=== PATIENT | male | born 2000 | race Caucasian/White ===

== ENCOUNTER 2020-02-10 16:26 | Emergency (ER) | payer OTHER, SELFPAY ==
[2020-02-10 17:26] VITALS: BP 128/90; PULSE 91; RESP 16; TEMP 36.6; O2SAT 98; BMI 22.4
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
== END 2020-02-10 20:40 | disposition home or self-care (01) ==
PROVIDERS: Emergency Provider Internal Medicine
DX: S49.92XA Unspecified injury of left shoulder and upper arm, initial encounter (principal); M25.512 Pain in left shoulder; R07.81 Pleurodynia; M54.2 Cervicalgia; V43.52XA Car driver injured in collision with other type car in traffic accident, initial encounter; Y93.9 Activity, unspecified; Y92.410 Unspecified street and highway as the place of occurrence of the external cause; Y99.9 Unspecified external cause status
CPT/HCPCS: 71101; 73030; 99283

== ENCOUNTER 2020-08-12 03:25 | Emergency (ER) | payer MEDICAID, SELFPAY ==
--- NOTE | ~2020-08-12 | XR_ITS ---
EXAMINATION: XR CHEST CLINICAL INFORMATION: Pain COMPARISON: 02/10/2020 TECHNIQUE: Frontal view of the chest was obtained. FINDINGS: The lungs are clear with no focal consolidation. No evidence of pneumothorax, pulmonary edema, or pleural effusions. The cardiomediastinal silhouette is unremarkable. No acute osseous findings. XR/XR chest 1V IMPRESSION: No acute cardiopulmonary findings.
--- NOTE | 2020-08-12 03:58 | ED.ABDPAIN ---
HPI - Abdominal Pain General Chief Complaint: Abdominal Pain Stated Complaint: chest and abdominal pain Time Seen by Provider: 08/12/20 03:58 Source: patient Mode of arrival: ambulatory Limitations: no limitations History of Present Illness HPI narrative: 20 yo male L sided chest wall pain with some radiation down to LUQ - no other associated symptoms started 5 days ago MD elicited complaint: other (L chest wall pain) Pertinent past history: none Onset (ago): day(s) (5) Pain Consistency: constant Location: chest and LUQ Severity: mild Quality: aching and dull Radiation: LUQ Exacerbating factors: movement Relieving factors: nothing Associated symptoms: denies other symptoms Related Data Previous Rx's Medication Instructions Recorded cyclobenzaprine 10 mg PO TID PRN #14 tab 08/12/20 ibuprofen 600 mg PO Q6H PRN #30 tab 08/12/20 Allergies Allergy/AdvReac Type Severity Reaction Status Date / Time No Known Allergies Allergy Verified 02/10/20 18:46 [No Known Allergies*] Review of Systems Review of Systems Constitutional : No Weight loss, No Fever, No Chills ENT/Mouth : No sore throat, No Rhinorrhea Eyes: No Eye Pain, No Swelling Cardiovascular : pos Chest Pain, no SOB, no Dyspnea on Exertion, No Orthopnea, No Edema, No Palpitations Respiratory : No Cough, No Sputum Gastrointestinal : no Nausea, No Vomiting, No Diarrhea, No abdominal Pain, No Hematochezia, No Melena Genitourinary : No Dysuria, No Urinary Frequency Musculoskeletal : No joint pain, No Myalgias, No Joint Swelling Skin : No Skin Lesions, No rash Neuro : No Weakness, No Numbness, No Dizziness, No Headache Psych : No Anxiety/Panic, No Depression Heme/Lymph: No Bruising, No Lymphadenopathy Endocrine : No Polyuria, No Polydipsia All other systems reviewed and are negative Physical Exam Vital Signs: Vital Signs: Last Vital Signs Temp 97.8 F 08/12/20 04:00 Pulse 90 08/12/20 04:00 Resp 16 08/12/20 04:00 BP 113/65 08/12/20 04:00 Pulse Ox 98 08/12/20 04:00 Body Mass Index 19.8 Appearance: Alert. Oriented X3. No acute distress. Eyes: Pupils equal, round and reactive to light. ENT: Pharynx normal. Neck: Normal inspection. Neck supple. CVS: Normal heart rate and rhythm. Pulses normal. Chest: ttp along L anterior chest wall Respiratory: No respiratory distress. Breath sounds normal. Abdomen: Soft and nontender. Skin: Skin warm and dry. Normal skin color. Normal skin turgor. Extremities: No lower extremity edema. No calf ttp Neuro: Oriented X 3. No motor deficit. No sensory deficit. Course Course Course Narrative: negative workup stable for DC MDM - Abdominal Pain MDM Narrative Medical decision making narrative: 20 yo male with no PMH here with L chest wall pain - started 5 days ago no trauma c/o pain traveling to [facility] doubt ACS/dissection/ PERC negative, will obtain CXR, EKG basic labs, treat with NSAIDs - anticipate DC home if all normal Differential Diagnosis Differential diagnosis: Likely abdominal pain; Unlikely aortic dissection, acute appendicitis, bowel perforation, calculus of kidney, endometriosis and mesenteric ischemia Lab Data Result diagrams: 08/12/20 04:30 08/12/20 04:30 Labs: Lab Results 08/12/20 08/12/20 08/12/20 Range/Units 04:30 04:30 04:30 WBC 5.6 (4.8-10.8) X10*3/uL RBC 4.99 (4.60-5.80) X10*6/uL Hgb 15.7 (14.0-18.0) g/dl Hct 45.6 (42-52) % MCV 91.4 (80-98) fL MCH 31.5 (27.0-33.0) pg MCHC 34.4 (31.0-36.0) g/dl RDW 11.9 (11.0-16.0) % Plt Count 230 (160-400) X10*3/uL MPV 10.0 (9.4-12.4) fL Immature Gran % (Auto) 0.4 (0.0-0.4) % Neut % (Auto) 45.6 (45-73) % Lymph % (Auto) 41.5 H (20-40) % [place] % (Auto) 10.0 (2-11) % Eos % (Auto) 1.8 (0-4) % Baso % (Auto) 0.7 (0-2) % Lymph # (Auto) 2.3 (1.2-4.9) X10*3/uL [place] # (Auto) 0.6 (0.1-1.2) X10*3/uL Eos # (Auto) 0.1 (0.0-0.4) X10*3/uL Baso # (Auto) 0.0 (0.0-0.2) X10*3/uL Abs Immat Gran (auto) 0.02 (0.00-0.03) X10*3/uL Absolute Neuts (auto) 2.6 (2.0-8.3) X10*3/uL Absolute Nucleated RBC 0.000 (0.0-0.012) X10*3/uL Nucleated RBC % (auto) 0.0 (0.0-0.2) /100WBC Hold Blue Top SEE NOTE Sodium 138 (135-145) mmol/L Potassium 3.6 (3.3-5.1) mmol/L Chloride 103 (96-108) mmol/L Carbon Dioxide 24 (22-29) mmol/L Anion Gap 15 (12-20) BUN 8 L (9-16) mg/dL Creatinine 0.84 (0.5-1.4) mg/dL Estim Creat Clear Calc 110.6 Estimated GFR > 60 Random Glucose 75 (60-115) mg/dL Calcium 9.1 (8.4-10.2) mg/dL Magnesium 1.8 (1.6-2.6) mg/dL Total Bilirubin 1.9 H (0.0-1.0) mg/dL Direct Bilirubin 0.7 H (0.0-0.5) mg/dL AST 16 (5-37) U/L ALT 20 (0-40) U/L Alkaline Phosphatase 75 (39-117) U/L Troponin I High Sens (<3.5-35.0) ng/L Total Protein 7.6 (6.5-8.0) g/dL Albumin 4.4 (3.5-5.0) g/dL Lipase 52 (8-78) U/L 08/12/20 Range/Units 04:30 WBC (4.8-10.8) X10*3/uL RBC (4.60-5.80) X10*6/uL Hgb (14.0-18.0) g/dl Hct (42-52) % MCV (80-98) fL MCH (27.0-33.0) pg MCHC (31.0-36.0) g/dl RDW (11.0-16.0) % Plt Count (160-400) X10*3/uL MPV (9.4-12.4) fL Immature Gran % (Auto) (0.0-0.4) % Neut % (Auto) (45-73) % Lymph % (Auto) (20-40) % [place] % (Auto) (2-11) % Eos % (Auto) (0-4) % Baso % (Auto) (0-2) % Lymph # (Auto) (1.2-4.9) X10*3/uL [place] # (Auto) (0.1-1.2) X10*3/uL Eos # (Auto) (0.0-0.4) X10*3/uL Baso # (Auto) (0.0-0.2) X10*3/uL Abs Immat Gran (auto) (0.00-0.03) X10*3/uL Absolute Neuts (auto) (2.0-8.3) X10*3/uL Absolute Nucleated RBC (0.0-0.012) X10*3/uL Nucleated RBC % (auto) (0.0-0.2) /100WBC Hold Blue Top Sodium (135-145) mmol/L Potassium (3.3-5.1) mmol/L Chloride (96-108) mmol/L Carbon Dioxide (22-29) mmol/L Anion Gap (12-20) BUN (9-16) mg/dL Creatinine (0.5-1.4) mg/dL Estim Creat Clear Calc Estimated GFR Random Glucose (60-115) mg/dL Calcium (8.4-10.2) mg/dL Magnesium (1.6-2.6) mg/dL Total Bilirubin (0.0-1.0) mg/dL Direct Bilirubin (0.0-0.5) mg/dL AST (5-37) U/L ALT (0-40) U/L Alkaline Phosphatase (39-117) U/L Troponin I High Sens < 3.5 (<3.5-35.0) ng/L Total Protein (6.5-8.0) g/dL Albumin (3.5-5.0) g/dL Lipase (8-78) U/L ECG Data Attestation: I personally reviewed and interpreted this ECG as follows: ECG interpretation date: 08/12/20 ECG interpretation time: 04:37 Interpretation: Rate: 101 Rhythm: sinus tachycardia [place]: normal Normal P waves. Normal NITHYA. Normal QRS complex. ST T wave : normal no DENNIS qTC: normal prior studies: no acute ischemia The study has been interpreted contemporaneously by me. . Discharge Plan Discharge Clinical Impression: Acute chest wall pain Patient Disposition: Home, Self-Care Instructions: Chest Wall Pain (ED) Additional Instructions: return to ED for any worsening symptoms or concerns Prescriptions: New cyclobenzaprine 10 mg tablet 10 mg PO TID PRN (Reason: muscle spasm) Qty: 14 RF: 0 ibuprofen 600 mg tablet 600 mg PO Q6H PRN (Reason: pain) Qty: 30 RF: 0 Referrals: Physician,Unknown [Primary Care Provider] - 2 days (if not better) Stand Alone Forms: Work/School Release [facility] Past Medical History Attestation statement: The following information was validated with the patient. Medical History No known health problems Social History Social History (Updated 08/12/20 @ 04:21 by Ashley Hoffman DO) Smoking Status: Never smoker Use of substances other than those prescribed or required for medical reasons: No Advance Directives: No Advance Directives Information Provided: No
[2020-08-12 04:00] VITALS: BP 113/65; PULSE 90; RESP 16; TEMP 36.6; O2SAT 98; BMI 19.8
--- NOTE | 2020-08-12 04:11 | ECG_ITS ---
Test Reason : ABD PAIN Blood Pressure : / mmHG Vent. Rate : 101 BPM Atrial Rate : 101 BPM P-R Int : 136 ms QRS Dur : 096 ms QT Int : 350 ms P-R-T Axes : 075 056 057 degrees QTc Int : 453 ms Sinus tachycardia Otherwise normal ECG When compared to the previous EKG of No significant changes seen Referred By: Ashley Hoffman Electronically Signed By:BURAK MENDENHALL MD
[2020-08-12] MEDS: Cyclobenzaprine HCl 10 MG TABLET PO (04:19)
[2020-08-12] MEDS: Ibuprofen 600 MG TABLET PO (04:19)
[2020-08-12 04:40] LABS: MANUAL DIFF FLAG NO
[2020-08-12 04:41] LABS: Basophils Percent Auto 0.7 % (0-2); Eosinophils Absolute Auto 0.1 X10*3/uL (0.0-0.4); Eosinophils Percent Auto 1.8 % (0-4); Hematocrit 45.6 % (42-52); Hemoglobin 15.7 g/dl (14.0-18.0); Imm Gran Abs Auto 0.02 X10*3/uL (0.00-0.03); Imm Gran Pct Auto 0.4 % (0.0-0.4); Lymphocytes Absolute Auto 2.3 X10*3/uL (1.2-4.9); Lymphocytes Percent Auto 41.5 % (20-40); Mean Corpuscular HGB Conc 34.4 g/dl (31.0-36.0); Mean Corpuscular Hemoglobin 31.5 pg (27.0-33.0); Mean Corpuscular Volume 91.4 fL (80-98); Monocytes Absolute Auto 0.6 X10*3/uL (0.1-1.2); Neutrophils Absolute Auto 2.6 X10*3/uL (2.0-8.3); Neutrophils Percent Auto 45.6 % (45-73); Platelet Count 230 X10*3/uL (160-400); Red Blood Count 4.99 X10*6/uL (4.60-5.80); Red Cell Distribution Width 11.9 % (11.0-16.0); White Blood Count 5.6 X10*3/uL (4.8-10.8)
[2020-08-12 05:04] LABS: Alanine Aminotransferase 20 U/L (0-40); Albumin Level 4.4 g/dL (3.5-5.0); Alkaline Phosphatase 75 U/L (39-117); Anion Gap 15 (12-20); Aspartate Amino Transferase 16 U/L (5-37); Bilirubin Direct 0.7 mg/dL (0.0-0.5); Bilirubin Total 1.9 mg/dL (0.0-1.0); Blood Urea Nitrogen 8 mg/dL (9-16); Calcium 9.1 mg/dL (8.4-10.2); Carbon Dioxide 24 mmol/L (22-29); Chloride 103 mmol/L (96-108); Creatinine Clr Calc Pharmacy 110.6; Estimated Glomerular Filt Rate > 60; Glucose Random 75 mg/dL (60-115); Lipase 52 U/L (8-78); Magnesium 1.8 mg/dL (1.6-2.6); Potassium 3.6 mmol/L (3.3-5.1); Sodium 138 mmol/L (135-145); Total Protein 7.6 g/dL (6.5-8.0)
[2020-08-12 05:10] LABS: Troponin-I High Sensitivity < 3.5 ng/L (<3.5-35.0)
== END 2020-08-12 05:23 | disposition home or self-care (01) ==
PROVIDERS: Emergency Provider Emergency Medicine
DX: R10.12 Left upper quadrant pain (principal); R07.89 Other chest pain; Z79.899 Other long term (current) drug therapy
CPT/HCPCS: 36415; 71045; 80048; 80076; 83690; 83735; 84484; 85025; 93005; 99283

== ENCOUNTER 2020-12-09 04:42 | Emergency (ER) | payer OTHER, SELFPAY ==
--- NOTE | 2020-12-09 | ECG_ITS ---
Test Reason : CHEST PAIN Blood Pressure : / mmHG Vent. Rate : 088 BPM Atrial Rate : 088 BPM P-R Int : 138 ms QRS Dur : 094 ms QT Int : 354 ms P-R-T Axes : 079 073 072 degrees QTc Int : 428 ms Normal sinus rhythm Early repolarization Normal ECG When compared with ECG of 12-AUG-2020 04:23, Heart rate has decreased Referred By: Generic ED Physician Electronically Signed By:ELLEN HOWELL
--- NOTE | ~2020-12-09 | XR_ITS ---
EXAMINATION: XR CHEST CLINICAL INFORMATION: Chest pain COMPARISON: 08/12/2020 TECHNIQUE: Frontal view of the chest was obtained. FINDINGS: The lungs are clear with no focal consolidation. No evidence of pneumothorax, pulmonary edema, or pleural effusions. The cardiomediastinal silhouette is unremarkable. No acute osseous findings. XR/XR chest 1V IMPRESSION: No acute cardiopulmonary findings.
[2020-12-09 04:59] VITALS: BP 127/78; PULSE 94; RESP 16; TEMP 36.4; O2SAT 98; BMI 19.7
[2020-12-09 05:48] VITALS: BP 120/78; PULSE 67; RESP 14; O2SAT 100
[2020-12-09 05:59] LABS: MANUAL DIFF FLAG NO
[2020-12-09 06:00] LABS: Basophils Percent Auto 0.6 % (0-2); Eosinophils Absolute Auto 0.1 X10*3/uL (0.0-0.4); Eosinophils Percent Auto 1.1 % (0-4); Hematocrit 41.5 % (42-52); Hemoglobin 14.4 g/dl (14.0-18.0); Imm Gran Abs Auto 0.02 X10*3/uL (0.00-0.03); Imm Gran Pct Auto 0.4 % (0.0-0.4); Lymphocytes Absolute Auto 1.9 X10*3/uL (1.2-4.9); Lymphocytes Percent Auto 34.6 % (20-40); Mean Corpuscular HGB Conc 34.7 g/dl (31.0-36.0); Mean Corpuscular Hemoglobin 31.9 pg (27.0-33.0); Mean Platelet Volume 10.1 fL (9.4-12.4); Monocytes Absolute Auto 0.5 X10*3/uL (0.1-1.2); Monocytes Percent Auto 9.9 % (2-11); Neutrophils Absolute Auto 2.9 X10*3/uL (2.0-8.3); Neutrophils Percent Auto 53.4 % (45-73); Platelet Count 207 X10*3/uL (160-400); Red Blood Count 4.51 X10*6/uL (4.60-5.80); Red Cell Distribution Width 11.3 % (11.0-16.0); White Blood Count 5.4 X10*3/uL (4.8-10.8)
[2020-12-09 06:15] LABS: Alanine Aminotransferase 33 U/L (0-40); Albumin Level 4.4 g/dL (3.5-5.0); Alkaline Phosphatase 62 U/L (39-117); Anion Gap 11 (12-20); Aspartate Amino Transferase 19 U/L (5-37); Bilirubin Total 2.3 mg/dL (0.0-1.0); Blood Urea Nitrogen 12 mg/dL (9-16); Calcium 9.5 mg/dL (8.4-10.2); Carbon Dioxide 26 mmol/L (22-29); Chloride 105 mmol/L (96-108); Creatinine Clr Calc Pharmacy 111.3; Estimated Glomerular Filt Rate > 60; Glucose Random 94 mg/dL (60-115); Potassium 3.3 mmol/L (3.3-5.1); Sodium 139 mmol/L (135-145); Total Protein 7.4 g/dL (6.5-8.0)
[2020-12-09 06:21] LABS: Troponin-I High Sensitivity < 3.5 ng/L (<3.5-35.0)
--- NOTE | 2020-12-09 06:35 | ED.CHESTPAIN ---
HPI - Chest Pain General Chief Complaint: Chest Pain Stated Complaint: multiple complaints Time Seen by Provider: 12/09/20 06:35 Source: patient Mode of arrival: ambulatory Limitations: no limitations History of Present Illness MD complaint: chest pain and other (neck arm pain) Onset (ago): day(s) (2) Timing of current episode: constant Prior episodes: Yes Onset: during rest Pain location: left chest Pain radiation: none Severity: moderate Quality: aching Relieving factors: movement Exacerbating factors: nothing Context: other (started after doing push ups) Treatment prior to arrival: none Related Data Previous Rx's Medication Instructions Recorded cyclobenzaprine 10 mg tablet 10 mg PO TID PRN #14 tab 08/12/20 ibuprofen 600 mg tablet 600 mg PO Q6H PRN #30 tab 08/12/20 Allergies Allergy/AdvReac Type Severity Reaction Status Date / Time No Known Allergies Allergy Verified 02/10/20 18:46 [No Known Allergies*] Review of Systems Review of Systems: Constitutional : No Weight loss, No Fever, No Chills ENT/Mouth : No sore throat, No Rhinorrhea Eyes: No Eye Pain, No Swelling Cardiovascular : pos Chest Pain, no sOB, no Dyspnea on Exertion, No Orthopnea, No Edema, No Palpitations Respiratory : No Cough, No Sputum Gastrointestinal : no Nausea, No Vomiting, No Diarrhea, No abdominal Pain, No Hematochezia, No Melena Genitourinary : No Dysuria, No Urinary Frequency Musculoskeletal : No joint pain, No Myalgias, No Joint Swelling Skin : No Skin Lesions, No rash Neuro : No Weakness, No Numbness, No Dizziness, No Headache Psych : No Anxiety/Panic, No Depression Heme/Lymph: No Bruising, No Lymphadenopathy Endocrine : No Polyuria, No Polydipsia All other systems reviewed and are negative [facility] Past Medical History Attestation statement: The following information was validated with the patient. Medical History No known health problems Social History Social History (Updated 12/09/20 @ 07:02 by Ashley Hoffman DO) Patient Tobacco Use Status: Never used Tobacco Use of substances other than those prescribed or required for medical reasons: No Advance Directives: No Physical Exam Vital Signs: Vital Signs: Last Vital Signs Temp 97.6 F 12/09/20 04:59 Pulse 52 12/09/20 06:38 Resp 15 12/09/20 06:38 BP 114/78 12/09/20 06:38 Pulse Ox 100 12/09/20 05:48 Body Mass Index 19.7 Appearance: Alert. Oriented X3. No acute distress. Eyes: Pupils equal, round and reactive to light. ENT: Pharynx normal. Neck: Normal inspection. Neck supple. spasm R trapezius CVS: Normal heart rate and rhythm. Pulses normal. Chest: ttp L chest wall reproduces pain Respiratory: No respiratory distress. Breath sounds normal. Abdomen: Soft and nontender. Skin: Skin warm and dry. Normal skin color. Normal skin turgor. Extremities: No lower extremity edema. No calf ttp Neuro: Oriented X 3. No motor deficit. No sensory deficit. MDM - Chest Pain MDM Narrative Medical decision making narrative: 20 yo male otherwise healthy here with 2 days of reproduceable chest and L arm pain as well as pain in R neck at trapezius after doing push ups - he is NV intact, negative EKG, CXR and trop - no distress, distal pulses intact doubt dissection, PERC negative Lab Data Result diagrams: 12/09/20 05:55 12/09/20 05:55 Labs: Lab Results 12/09/20 12/09/20 12/09/20 Range/Units 05:55 05:55 05:55 WBC 5.4 (4.8-10.8) X10*3/uL RBC 4.51 L (4.60-5.80) X10*6/uL Hgb 14.4 (14.0-18.0) g/dl Hct 41.5 L (42-52) % MCV 92.0 (80-98) fL MCH 31.9 (27.0-33.0) pg MCHC 34.7 (31.0-36.0) g/dl RDW 11.3 (11.0-16.0) % Plt Count 207 (160-400) X10*3/uL MPV 10.1 (9.4-12.4) fL Immature Gran % (Auto) 0.4 (0.0-0.4) % Neut % (Auto) 53.4 (45-73) % Lymph % (Auto) 34.6 (20-40) % [place] % (Auto) 9.9 (2-11) % Eos % (Auto) 1.1 (0-4) % Baso % (Auto) 0.6 (0-2) % Lymph # (Auto) 1.9 (1.2-4.9) X10*3/uL [place] # (Auto) 0.5 (0.1-1.2) X10*3/uL Eos # (Auto) 0.1 (0.0-0.4) X10*3/uL Baso # (Auto) 0.0 (0.0-0.2) X10*3/uL Abs Immat Gran (auto) 0.02 (0.00-0.03) X10*3/uL Absolute Neuts (auto) 2.9 (2.0-8.3) X10*3/uL Absolute Nucleated RBC 0.000 (0.0-0.012) X10*3/uL Nucleated RBC % (auto) 0.0 (0.0-0.2) /100WBC Sodium 139 (135-145) mmol/L Potassium 3.3 (3.3-5.1) mmol/L Chloride 105 (96-108) mmol/L Carbon Dioxide 26 (22-29) mmol/L Anion Gap 11 L (12-20) BUN 12 (9-16) mg/dL Creatinine 0.83 (0.5-1.4) mg/dL Estim Creat Clear Calc 111.3 Estimated GFR > 60 Random Glucose 94 (60-115) mg/dL Calcium 9.5 (8.4-10.2) mg/dL Total Bilirubin 2.3 H (0.0-1.0) mg/dL AST 19 (5-37) U/L ALT 33 (0-40) U/L Alkaline Phosphatase 62 (39-117) U/L Troponin I High Sens < 3.5 (<3.5-35.0) ng/L Total Protein 7.4 (6.5-8.0) g/dL Albumin 4.4 (3.5-5.0) g/dL ECG Data ECG #1: Attestation: I personally reviewed and interpreted this ECG as follows: ECG interpretation date: 12/09/20 ECG interpretation time: 06:58 Interpretation: Rate: 88 Rhythm: NSR [place]: normal Normal P waves. Normal NITHYA. Normal QRS complex. ST T wave : early repolarization qTC: normal prior studies: no acute ischemia The study has been interpreted contemporaneously by me. . Discharge Plan Discharge Clinical Impression: Atypical chest pain, Acute strain of neck muscle Instructions: Chest Wall Pain (ED), Muscle Strain (ED) Additional Instructions: return to ED for any worsening symptoms or concerns Prescriptions: No Action cyclobenzaprine 10 mg tablet 10 mg PO TID PRN (Reason: muscle spasm) Qty: 14 RF: 0 ibuprofen 600 mg tablet 600 mg PO Q6H PRN (Reason: pain) Qty: 30 RF: 0 Referrals: Physician,Unknown [Primary Care Provider] - 2 days (if not better)
[2020-12-09 06:38] VITALS: BP 114/78; PULSE 52; RESP 15
--- NOTE | 2020-12-09 07:35 | PC.NURSE ---
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
== END 2020-12-09 08:28 | disposition home or self-care (01) ==
PROVIDERS: Emergency Provider Emergency Medicine
DX: R07.89 Other chest pain (principal); M54.2 Cervicalgia; Z79.899 Other long term (current) drug therapy
CPT/HCPCS: 36415; 71045; 80053; 84484; 85025; 93005; 99283; 99284

== ENCOUNTER 2021-01-17 19:03 | Emergency (ER) | payer OTHER, SELFPAY ==
[2021-01-17 19:22] VITALS: BP 118/82; PULSE 110; RESP 16; TEMP 36.7; O2SAT 100; BMI 19.8
--- NOTE | 2021-01-17 19:44 | ED.FALL ---
HPI - Fall General Chief Complaint: Neck Pain/Injury Stated Complaint: Fall Time Seen by Provider: 01/17/21 19:37 Source: patient Mode of arrival: ambulatory Limitations: no limitations History of Present Illness HPI Narrative: 20-year-old male presenting with multiple complaints after a mechanical fall. Patient reports acute on chronic right-sided neck pain after the fall as well as a small abrasion on his forehead and some right-sided jaw pain. He reports tripping and falling onto the carpet at 16:00 today. He did not his head or lose consciousness. He is able to talk, eat, fully open and close his jaw. The pain is worse when he touches it and he feels like there is a small area of swelling. He has no sore throat, runny nose, fever, chills. His neck pain is on the right side which is chronic in nature but worse after the fall. He has no cervical spinal pain and he has normal range of motion of the neck. MD complaint: fall Onset (ago): hour(s) (4) Fall from: standing Fall witnessed: yes, by family Place fall occurred: home Loss of consciousness: none Prolonged down time: no Symptoms prior to fall: none Context: tripped/slipped Location of injury: face Severity: mild Quality: aching Associated symptoms (after fall): neck pain Related Data Previous Rx's Medication Instructions Recorded cyclobenzaprine 10 mg tablet 10 mg PO TID PRN #14 tab 08/12/20 ibuprofen 600 mg tablet 600 mg PO Q6H PRN #30 tab 08/12/20 cyclobenzaprine 10 mg tablet 10 mg PO TID PRN #10 tab 01/17/21 ibuprofen 600 mg tablet 600 mg PO Q8H PRN #10 tab 01/17/21 lidocaine 5 % topical patch 1 patch TOPICAL DAILY #15 ea 01/17/21 Allergies Allergy/AdvReac Type Severity Reaction Status Date / Time No Known Allergies Allergy Verified 01/17/21 19:22 [No Known Allergies*] Review of Systems Review of Systems: Constitutional: No Fever, No Chills ENT/Mouth: No sore throat, No Rhinorrhea, No Swallowing Difficulty Eyes: No Eye Pain, No Swelling, No Redness Cardiovascular: No Chest Pain, No SOB Respiratory: No Cough, No Sputum, No Wheezing, No dyspnea Gastrointestinal: No Nausea, No Vomiting, No Diarrhea, No abdominal Pain Musculoskeletal: +joint pain, + Myalgias Skin: + Skin Lesions, No rash Neuro: No Weakness, No Numbness, No Dizziness, No Headache Psych: + Anxiety/Panic, No Depression Heme/Lymph: No Bruising, + Lymphadenopathy PMFSH Past Medical History Medical History No known health problems Social History Social History (Updated 12/09/20 @ 07:02 by Ashley Hoffman DO) Patient Tobacco Use Status: Never used Tobacco Advance Directives: No Advance Directives Information Provided: No Physical Exam Vital Signs: Vital Signs: Last Vital Signs Temp 98.1 F 01/17/21 19: Pulse 110 H 01/17/21 19:22 Resp 16 01/17/21 19:22 BP 118/82 01/17/21 19:22 Pulse Ox 100 01/17/21 19:22 Body Mass Index 19.8 Appearance: Alert. Oriented X3. No acute distress. Head/face: superficial very small abrasion to right upper forehead. normocephalic Eyes: Pupils equal, round and reactive to light. ENT: Pharynx normal. Normal appearance and ROM of mandible. Neck: Normal inspection. Neck supple. No cervical spinal tenderness. right sided cervical muscle tenderness and spasm CVS: Normal heart rate and rhythm. Pulses normal. Respiratory: No respiratory distress. Breath sounds normal. Skin: Skin warm and dry. Normal skin color. Normal skin turgor. No rashes. Extremities: Atraumatic x4 Neuro: Oriented X 3. No motor deficit. No sensory deficit. Course Course Course Narrative: 20-year-old male presenting with multiple complaints after a minor mechanical fall earlier today. He has a small superficial abrasion on his forehead and wants to know how long is going to be before goes away. He has acute on chronic neck pain with no evidence of bony injury, he has some mild palpable muscle spasm on the right side of his neck. He also has a small mobile lymph node at the angle of the right mandible. No signs of an infection. He was instructed to follow up with his primary care doctor for further evaluation and management if this does not resolve on its own. Will plan to treat for cervical strain and spasm with a short course of Flexeril and ibuprofen and Lidoderm patches. Patient agreeable with plan. Stable for discharge home. Discharge Plan Discharge Clinical Impression: Strain of neck muscle Qualifiers: Encounter type: initial encounter Qualified Code(s): S16.1XXA - Strain of muscle, fascia and tendon at neck level, initial encounter Patient Disposition: Home, Self-Care Instructions: Cervical Strain (ED), Lymphadenopathy (ED) Additional Instructions: Your neck pains are most likely due to strain and spasm. Recommend rest, use ice and or heat several times a day which ever feels better. Take prescribed medications as needed for pain There is a small enlarged lymph node on the right jaw that is causing some discomfort. There is no evidence of fracture or bony abnormality of the jaw Recommend following up with your doctor for further evaluation if the swelling persists Prescriptions: New cyclobenzaprine 10 mg tablet 10 mg PO TID PRN (Reason: muscle spasm) Qty: 10 RF: 0 ibuprofen 600 mg tablet 600 mg PO Q8H PRN (Reason: pain) Qty: 10 RF: 0 lidocaine 5 % adhesive patch,medicated 1 patch topical DAILY Qty: 15 RF: 0 No Action cyclobenzaprine 10 mg tablet 10 mg PO TID PRN (Reason: muscle spasm) Qty: 14 RF: 0 ibuprofen 600 mg tablet 600 mg PO Q6H PRN (Reason: pain) Qty: 30 RF: 0
== END 2021-01-17 20:33 | disposition home or self-care (01) ==
PROVIDERS: Emergency Provider Internal Medicine
DX: S00.81XA Abrasion of other part of head, initial encounter (principal); S16.1XXA Strain of muscle, fascia and tendon at neck level, initial encounter; G44.309 Post-traumatic headache, unspecified, not intractable; M54.2 Cervicalgia; W01.0XXA Fall on same level from slipping, tripping and stumbling without subsequent striking against object, initial encounter; Y93.9 Activity, unspecified; Y92.9 Unspecified place or not applicable; Y99.9 Unspecified external cause status; Z79.899 Other long term (current) drug therapy
CPT/HCPCS: 99283

== ENCOUNTER 2021-03-02 04:58 | Emergency (ER) | payer OTHER, SELFPAY ==
[2021-03-02 05:09] VITALS: BP 124/87; PULSE 80; RESP 18; TEMP 36.8; O2SAT 100; BMI 19.8
--- NOTE | 2021-03-02 05:11 | ED_ITS ---
HPI - General Adult General Chief complaint: Abdominal Pain Stated complaint: abdominal pain, swollen fingers ? Time Seen by Provider: 03/02/21 05:06 Source: patient Mode of arrival: ambulatory Limitations: no limitations History of Present Illness HPI narrative: Patient comes to emergency room complaining of bilateral upper quadrant pain. Patient states he felt a sharp pain that woke him up from sleep, no resolve. Denies vomiting, no diarrhea, no nausea, no fever or chills, no flank pain, no dysuria, no urinary symptoms Related Data Previous Rx's Medication Instructions Recorded cyclobenzaprine 10 mg tablet 10 mg PO TID PRN #14 tab 08/12/20 ibuprofen 600 mg tablet 600 mg PO Q6H PRN #30 tab 08/12/20 cyclobenzaprine 10 mg tablet 10 mg PO TID PRN #10 tab 01/17/21 ibuprofen 600 mg tablet 600 mg PO Q8H PRN #10 tab 01/17/21 lidocaine 5 % topical patch 1 patch TOPICAL DAILY #15 ea 01/17/21 cyclobenzaprine 10 mg tablet 10 mg PO TID PRN #10 tab 03/02/21 Allergies Allergy/AdvReac Type Severity Reaction Status Date / Time No Known Allergies Allergy Verified 01/17/21 19:22 [No Known Allergies*] Review of Systems Review of Systems: Constitutional : No Weight loss, No Fever, No Chills, No Night Sweats, No Fatigue, No Malaise ENT/Mouth : No Hearing loss, No Ear Pain, No Nasal Congestion, No Sinus Pain, No Hoarseness, No sore throat, No Rhinorrhea, No Swallowing Difficulty Eyes: No Eye Pain, No Swelling, No Redness, No Foreign Body, No Discharge, No Vision Changes Cardiovascular : No Chest Pain, No SOB, No Dyspnea on Exertion, No Orthopnea, No Edema, No Palpitations Respiratory : No Cough, No Sputum, No Wheezing, No Smoke Exposure, No Dyspnea Gastrointestinal : No Nausea, No Vomiting, No Diarrhea, No Constipation, once episode of bilateral upper quadrant pain. No Hematochezia, No Melena Genitourinary : no irregular bleeding, No Dysuria, No Urinary Frequency, No Hematuria, No Urinary Incontinence, No Urgency, No Flank Pain, No Urinary Flow Changes, No Hesitancy Musculoskeletal : No joint pain, No Myalgias, No Joint Swelling Skin : No Skin Lesions, No rash Neuro : No Weakness, No Numbness, No Paresthesias, No Loss of Consciousness, No Dizziness, No Headache Psych : No Anxiety/Panic, No Depression, No SI/HI/AH/VH, No Social Issues, Heme/Lymph: No Bruising, No Bleeding,No Lymphadenopathy Endocrine : No Polyuria, No Polydipsia, No Temperature Intolerance PMF Past Medical History Medical History No known health problems Social History Social History (Updated 12/09/20 @ 07:02 by Ashley Hoffman DO) Patient Tobacco Use Status: Never used Tobacco Advance Directives: No Physical Exam Vital Signs: Vital Signs: Last Vital Signs Temp 97.9 F 03/02/21 05:24 Pulse 76 03/02/21 05:24 Resp 14 03/02/21 05:24 BP 120/80 03/02/21 05:24 Pulse Ox 100 03/02/21 05:24 BMI result Body Mass Index 19.8 Const: Other: Appearance: Alert. Oriented X3. No acute distress. Eyes: Pupils equal, round and reactive to light. ENT: Pharynx normal. Neck: Normal inspection. Neck supple. No lymph nodes noted. No crepitus CVS: Normal heart rate and rhythm. Pulses normal. Normal S1 and S2 Respiratory: No respiratory distress. Breath sounds normal. No Wheezing. No rales Abdomen: Soft and nontender. Negative Gilliland sign, no pain on heartburn is point No rigidity. No distention. Skin: Skin warm and dry. Normal skin color. Normal skin turgor. Extremities: No lower extremity edema. No Lacerations. No Rash Neuro: Oriented X 3. No motor deficit. No sensory deficit. Moving all extermities. No slurred speech. Course Course Course Narrative: Patient has a mildly chronically elevated T bilirubin, otherwise labs within normal limits. Patient instructed to follow-up with his primary care physician. Patient states that he has previously had this kind of pain before, he was prescribed cyclobenzaprine and with the help with his symptoms. Patient requesting a prescription for muscle relaxants. Medical Decision Making Lab Data Result diagrams: 03/02/21 05:21 03/02/21 05:21 Labs: Lab Results 03/02/21 03/02/21 Range/Units 05: 05:21 WBC 4.9 (4.8-10.8) X10*3/uL RBC 4.69 (4.60-5.80) X10*6/uL Hgb 15.1 (14.0-18.0) g/dl Hct 44.6 (42.0-52.0) % MCV 95.1 (80.0-98.0) fL MCH 32.2 (27.0-33.0) pg MCHC 33.9 (31.0-36.0) g/dl RDW 11.7 (11.0-16.0) % Plt Count 216 (160-400) X10*3/uL MPV 9.9 (9.4-12.4) fL Immature Gran % (Auto) 0.2 (0.0-0.4) % Neut % (Auto) 40.0 L (45-73) % Lymph % (Auto) 49.2 H (20-40) % [facility] % (Auto) 8.4 (2-11) % Eos % (Auto) 1.6 (0-4) % Baso % (Auto) 0.6 (0-2) % Lymph # (Auto) 2.4 (1.2-4.9) X10*3/uL [facility] # (Auto) 0.4 (0.1-1.2) X10*3/uL Eos # (Auto) 0.1 (0.0-0.4) X10*3/uL Baso # (Auto) 0.0 (0.0-0.2) X10*3/uL Abs Immat Gran (auto) 0.01 (0.00-0.03) X10*3/uL Absolute Neuts (auto) 1.9 L (2.0-8.3) x10*3/uL Absolute Nucleated RBC 0.000 (0.0-0.012) X10*3/uL Nucleated RBC % (auto) 0.0 (0.0-0.2) /100WBC Sodium 140 (135-145) mmol/L Potassium 3.6 (3.3-5.1) mmol/L Chloride 105 (96-108) mmol/L Carbon Dioxide 27 (22-29) mmol/L Anion Gap 12 (12-20) BUN 9 (9-16) mg/dL Creatinine 0.89 (0.5-1.4) mg/dL Estim Creat Clear Calc 103.6 Estimated GFR > 60 Random Glucose 86 (60-115) mg/dL Calcium 9.5 (8.4-10.2) mg/dL Total Bilirubin 1.5 H (0.0-1.0) mg/dL Direct Bilirubin 0.5 (0.0-0.5) mg/dL AST 23 (5-37) U/L ALT 26 (0-40) U/L Alkaline Phosphatase 65 (39-117) U/L Total Protein 7.9 (6.5-8.0) g/dL Albumin 4.6 (3.5-5.0) g/dL Lipase 56 (8-78) U/L Discharge Plan Discharge Clinical Impression: Abdominal pain Qualifiers: Abdominal location: generalized Qualified Code(s): R10.84 - Generalized abdominal pain Patient Disposition: Home, Self-Care Instructions: Abdominal Pain (ED) Additional Instructions: Please follow-up with your primary care physician tomorrow. If you have any worsening or new symptoms, please return to the emergency room or call 911 Prescriptions: New cyclobenzaprine 10 mg tablet 10 mg PO TID PRN (Reason: muscle spasm) Qty: 10 RF: 0 No Action cyclobenzaprine 10 mg tablet 10 mg PO TID PRN (Reason: muscle spasm) Qty: 14 RF: 0 ibuprofen 600 mg tablet 600 mg PO Q6H PRN (Reason: pain) Qty: 30 RF: 0 cyclobenzaprine 10 mg tablet 10 mg PO TID PRN (Reason: muscle spasm) Qty: 10 RF: 0 ibuprofen 600 mg tablet 600 mg PO Q8H PRN (Reason: pain) Qty: 10 RF: 0 lidocaine 5 % adhesive patch,medicated 1 patch topical DAILY Qty: 15 RF: 0
[2021-03-02 05:24] VITALS: BP 120/80; PULSE 76; RESP 14; TEMP 36.6; O2SAT 100
[2021-03-02 05:29] LABS: Basophils Percent Auto 0.6 % (0-2); Eosinophils Absolute Auto 0.1 X10*3/uL (0.0-0.4); Eosinophils Percent Auto 1.6 % (0-4); Hematocrit 44.6 % (42.0-52.0); Hemoglobin 15.1 g/dl (14.0-18.0); Imm Gran Abs Auto 0.01 X10*3/uL (0.00-0.03); Imm Gran Pct Auto 0.2 % (0.0-0.4); Lymphocytes Absolute Auto 2.4 X10*3/uL (1.2-4.9); Lymphocytes Percent Auto 49.2 % (20-40); Mean Corpuscular HGB Conc 33.9 g/dl (31.0-36.0); Mean Corpuscular Hemoglobin 32.2 pg (27.0-33.0); Mean Corpuscular Volume 95.1 fL (80.0-98.0); Mean Platelet Volume 9.9 fL (9.4-12.4); Monocytes Absolute Auto 0.4 X10*3/uL (0.1-1.2); Monocytes Percent Auto 8.4 % (2-11); Neutrophils Absolute Auto 1.9 x10*3/uL (2.0-8.3); Platelet Count 216 X10*3/uL (160-400); Red Blood Count 4.69 X10*6/uL (4.60-5.80); Red Cell Distribution Width 11.7 % (11.0-16.0); White Blood Count 4.9 X10*3/uL (4.8-10.8)
[2021-03-02 05:30] LABS: MANUAL DIFF FLAG NO
[2021-03-02 05:49] LABS: Alanine Aminotransferase 26 U/L (0-40); Albumin Level 4.6 g/dL (3.5-5.0); Alkaline Phosphatase 65 U/L (39-117); Anion Gap 12 (12-20); Aspartate Amino Transferase 23 U/L (5-37); Bilirubin Direct 0.5 mg/dL (0.0-0.5); Bilirubin Total 1.5 mg/dL (0.0-1.0); Blood Urea Nitrogen 9 mg/dL (9-16); Calcium 9.5 mg/dL (8.4-10.2); Carbon Dioxide 27 mmol/L (22-29); Chloride 105 mmol/L (96-108); Creatinine Clr Calc Pharmacy 103.6; Estimated Glomerular Filt Rate > 60; Glucose Random 86 mg/dL (60-115); Lipase 56 U/L (8-78); Potassium 3.6 mmol/L (3.3-5.1); Sodium 140 mmol/L (135-145); Total Protein 7.9 g/dL (6.5-8.0)
[2021-03-02 06:20] VITALS: BP 122/76; PULSE 86
--- NOTE | 2021-03-02 06:22 | PC.NURSE ---
Pt a&o, no sob or chest pain. reviewed discharge plan and medications. pt verbalized understanding.
== END 2021-03-02 06:27 | disposition home or self-care (01) ==
PROVIDERS: Emergency Provider Emergency Medicine
DX: R10.10 Upper abdominal pain, unspecified (principal); R10.84 Generalized abdominal pain; Z79.899 Other long term (current) drug therapy
CPT/HCPCS: 36415; 80048; 80076; 83690; 85025; 99283; 99284

== ENCOUNTER 2022-06-15 00:04 | Emergency (ER) | payer OTHER, SELFPAY ==
--- NOTE | ~2022-06-15 | XR_ITS ---
EXAMINATION: XR TIBIA AND FIBULA, LEFT CLINICAL INFORMATION: Injury COMPARISON: Left knee radiographs 03/07/2019 TECHNIQUE: AP and lateral views of the left tibia and fibula were obtained. FINDINGS: No fracture or cortical disruption. Appropriate alignment of the knee and ankle. The soft tissues are unremarkable. XR/XR tibia fibula LT 2V IMPRESSION: Normal left tibia and fibula.
[2022-06-15 01:18] VITALS: BP 109/66; PULSE 99; RESP 16; TEMP 36.8; O2SAT 100; BMI 20.9
[2022-06-15 03:04] VITALS: BP 121/84; PULSE 86; RESP 16; TEMP 36.6; O2SAT 99
--- OUTSIDE RECORDS SUMMARY | 2022-06-15 03:17 | XMS_ITS | Continuity of Care Document ---
:2000 Author Organization [facility] Address [address] [place] [address]- Care Team Providers Name Role Phone Not on Staff, PCP Primary Care Physician Unavailable [place] [facility] [place] [facility] [place](s[place] 09/29/21 - 09/29/[address] [address]- Discharge Disposition: A-D/C Walkout Attending Physician: Not on Staff, Attending MD Admitting Physician: Not on Staff, Admitting MD Referring Physician: Not on Staff, Referring MD Allergies, Adverse Reactions, Alerts No Known Allergies Medications ibuprofen 600 mg oral tablet 600 mg, 1, tablet, By Mouth, Every 6 hours, PRN, # 40 tablet, Refills 0, Tot. Refills 0, Maintenance, for pain, 05/24/17 8:26:31, Print Requisition Start Date: 05/24/17 Status: OrderedMisc Rx Refills 0, Maintenance, per mom NO home medications, 09/12/12 8:48:23 Start Date: 09/12/12 Status: Ordered Problem List Condition Effective Dates Status Health Status Informant Attention deficit hyperactivity Active disorder (ADHD)(Confirmed) Learning disability(Confirmed) Active Migraine without aura(Confirmed) Active Vital Signs Most recent to oldest [Reference Range]: 1 2 Height 167 cm (09/29/21 9:17 PM) Oxygen Saturation [94-100 %] 100 % 99 % (09/29/21 9:17 PM) (09/29/21 8:44 PM) Pulse Rate [55-90 bpm] 92 bpm 115 bpm *H* *H* (09/29/21 9:17 PM) (09/29/21 8:44 PM) Blood Pressure [90-138/55-84 mm Hg] 121/79 mm Hg (09/29/21 9:17 PM) Respiratory Rate [16-30 br/min] 16 br/min (09/29/21 9:17 PM) Temperature [96.8-100.4 DegF] 98.2 DegF (09/29/21 9:17 PM) Mode of Delivery (Oxygen) Room air Room air (09/29/21 9:17 PM) (09/29/21 8:44 PM) Blood pressure sites Arm, left (09/29/21 9:17 PM) Temperature Route Oral (09/29/21 9:17 PM)
--- NOTE | 2022-06-15 04:34 | ED.LOWEXIN ---
HPI - Extremity Injury (Lower) General Chief Complaint: Extremity Injury, Lower Stated Complaint: leg pain Time Seen by Provider: 06/15/22 04:27 Source: patient Mode of arrival: ambulatory Limitations: no limitations History of Present Illness HPI Narrative: 22-year-old male who presents emergency department for evaluation of left lower extremity injury . 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 states that he was moving a can a fell off the shelf and struck his left lateral distal tibia area. The patient states that he was having pain in the area of his injury and was also having pain in his knees bilaterally. He states he has had pain in his knees bilaterally for years and has had physical therapy in the past. He states that the injury to his leg increase the pain in his knees. Related Data Previous Rx's Medication Instructions Recorded cyclobenzaprine 10 mg tablet 10 mg PO TID PRN muscle spasm #14 08/12/20 tabs ibuprofen 600 mg tablet 600 mg PO Q6H PRN pain #30 tabs 08/12/20 cyclobenzaprine 10 mg tablet 10 mg PO TID PRN muscle spasm #10 01/17/21 tabs ibuprofen 600 mg tablet 600 mg PO Q8H PRN pain #10 tabs 01/17/21 lidocaine 5 % topical patch 1 patch topical DAILY #15 ea 01/17/21 cyclobenzaprine 10 mg tablet 10 mg PO TID PRN muscle spasm #10 03/02/21 tabs Allergies Allergy/AdvReac Type Severity Reaction Status Date / Time No Known Allergies Allergy Verified 06/15/22 01:22 [No Known Allergies*] Review of Systems Review of Systems: Yes all other systems are reviewed and are negative [facility] Past Medical History [facility] Narrative: Past medical history: Bilateral knee pain of unclear etiology, patient has had physical therapy in the past for this pain. Social history: He works for [employer] as a bank cashier. He denies tobacco, drug use. He does occasionally drink alcohol. Medical History No known health problems Social History Social History (Updated 12/09/20 @ 07:02 by Chelo Hoffman DO) Patient Tobacco Use Status: Never used Tobacco Advance Directives: No Advance Directives Information Provided: Yes Physical Exam Vital Signs: Vital Signs: Last Vital Signs Temp 97.8 F 06/15/22 03:04 Pulse 86 06/15/22 03:04 Resp 16 06/15/22 03:04 BP 121/84 06/15/22 03:04 Pulse Ox 99 06/15/22 03:04 O2 Del Method 06/15/22 03:04 BMI result Body Mass Index 20.9 General: Awake alert male patient, no distress, pleasant, cooperative. Extremities: Patient's knees appear to be normal, the patient has no tenderness palpation over his medial or lateral collateral ligaments there is no tenderness palpation of his patella there is no joint effusions. There is no increased erythema or warmth to the skin. Patient does have an area tenderness over the left distal medial aspect of his tibia, there is no ecchymosis or hematoma. His extremities neurovascular intact Medical Decision Making Medical Decision Making MDM Narrative: 22-year-old male who presents emergency department for evaluation of injury to his left lower extremity and a can accidentally fell off a shelf and struck him in the leg while he was at work. The patient does have an area of tenderness over the left medial tibial area which is consistent with a contusion. X-rays were obtained and on my reading of the x-ray there was no acute findings this was confirmed by the radiologist as well. The patient states he has been having knee pain for years, he has no significant findings on his knee exam at this time. Differential Diagnosis Differential diagnosis includes was not limited to contusion, fracture Independent Interpretation I performed an independent interpretation of an: Plain X-Ray Interpretation: Left tib fib x-ray was interpreted by me as no acute fracture Radiology Impression Discussion of test interpretation with radiology: I have reviewed the radiologist's reading. Radiologist Impression: XR tibia fibula LT 2V IMPRESSION: Normal left tibia and fibula. Dictated By:Scar Joshi MDSigned By:<Electronically signed by Scar Joshi MD in OV>06/15/22 0212 Discharge Plan Discharge Clinical Impression: Contusion of left leg Qualifiers: Encounter type: initial encounter Qualified Code(s): S80.12XA - Contusion of left lower leg, initial encounter Knee pain, bilateral Qualifiers: Chronicity: chronic Qualified Code(s): M25.561 - Pain in right knee Patient Disposition: Home, Self-Care Instructions: Contusion in Adults (ED) Additional Instructions: The x-ray of your leg revealed no broken bone Your exam is consistent with a contusion/bruise. Take ibuprofen 200 mg pills, 2 pills every 6 hours as needed for pain. Take Tylenol (acetaminophen) 500 mg pills, 2 pills every 6 hours as needed for pain. Follow-up with your doctor in 2 days. Please return to the emergency department if your symptoms get worse or if you develop any symptoms that are concerning to you. Prescriptions: No Action cyclobenzaprine 10 mg tablet 10 mg PO TID PRN (Reason: muscle spasm) Qty: 14 0RF ibuprofen 600 mg tablet 600 mg PO Q6H PRN (Reason: pain) Qty: 30 0RF cyclobenzaprine 10 mg tablet 10 mg PO TID PRN (Reason: muscle spasm) Qty: 10 0RF cyclobenzaprine 10 mg tablet 10 mg PO TID PRN (Reason: muscle spasm) Qty: 10 0RF ibuprofen 600 mg tablet 600 mg PO Q8H PRN (Reason: pain) Qty: 10 0RF lidocaine 5 % adhesive patch,medicated 1 patch topical DAILY Qty: 15 0RF Rx Instructions: leave on most painful area for up to 12 hrs
[2022-06-15] MEDS: Acetaminophen 325 MG TABLET 975 MG PO (04:39)
== END 2022-06-15 04:59 | disposition home or self-care (01) ==
PROVIDERS: Emergency Provider Emergency Medicine Emergency Medical Services
DX: S80.12XA Contusion of left lower leg, initial encounter (principal); W20.8XXA Other cause of strike by thrown, projected or falling object, initial encounter; G89.29 Other chronic pain; M25.561 Pain in right knee; M25.562 Pain in left knee; Y93.89 Activity, other specified; Y92.512 Supermarket, store or market as the place of occurrence of the external cause; Y99.0 Civilian activity done for income or pay
CPT/HCPCS: 73590; 99283; 99284

== ENCOUNTER 2022-08-25 21:10 | Emergency (ER) | payer OTHER, SELFPAY ==
--- NOTE | ~2022-08-25 | XR_ITS ---
EXAMINATION: XR RIBS, LEFT CLINICAL INFORMATION: Pain COMPARISON: 12/09/2020 shoulder films from 02/10/2020 TECHNIQUE: Single chest image and 3 detailed views of the left ribs FINDINGS: The chest film demonstrates no pneumothorax or effusion. The mediastinal contours are within normal limits. The cardiac silhouette is within normal limits The hilar regions are felt to be comparable. There is a bony lesion involving the scapula extending to the glenoid. Measures approximately 3.8 x 3.4 cm. Mixed lucent and sclerotic lesion. I believe it was seen previously on shoulder films but could be larger on this exam though this could be due to technique. There is no abnormality of the ribs. No fracture is seen. XR/XR ribs LT min 3V w CXR1V IMPRESSION: No evidence of rib fracture. No pneumothorax or effusion. Note is made of a mixed lucent sclerotic lesion involving the scapula which I believe was present on previous films but I cannot exclude some increased size. Recommendation is pre and postcontrast MRI to further evaluate.
[2022-08-25 22:09] VITALS: BP 104/84; PULSE 95; RESP 18; TEMP 36.8; O2SAT 98; BMI 19.4
[2022-08-25 22:12] VITALS: RESP 18
[2022-08-25] MEDS: Ibuprofen 600 MG TABLET PO (22:42)
--- NOTE | 2022-08-25 22:47 | ED.BACK ---
HPI - Back Pain/Injury General Chief Complaint: Back Pain/Injury Stated Complaint: back pain Time Seen by Provider: 08/25/22 22:31 Source: patient Mode of arrival: ambulatory Limitations: no limitations History of Present Illness HPI Narrative: 22-year-old male came in for evaluation left chest wall pain and left scapular pain. Started about 2 weeks ago symptoms is intermittent wax and wane, no difficulty breathing,, no coughing, no fever, no chills. Related Data Previous Rx's Medication Instructions Recorded cyclobenzaprine 10 mg tablet 10 mg PO TID PRN muscle spasm #14 08/12/20 tabs ibuprofen 600 mg tablet 600 mg PO Q6H PRN pain #30 tabs 08/12/20 cyclobenzaprine 10 mg tablet 10 mg PO TID PRN muscle spasm #10 01/17/21 tabs ibuprofen 600 mg tablet 600 mg PO Q8H PRN pain #10 tabs 01/17/21 lidocaine 5 % topical patch 1 patch topical DAILY #15 ea 01/17/21 cyclobenzaprine 10 mg tablet 10 mg PO TID PRN muscle spasm #10 03/02/21 tabs cyclobenzaprine 10 mg tablet 10 mg PO BEDTIME PRN muscle spasm 08/25/22 #14 tabs ibuprofen 600 mg tablet 600 mg PO Q8H PRN pain #14 tabs 08/25/22 Allergies Allergy/AdvReac Type Severity Reaction Status Date / Time No Known Allergies Allergy Verified 08/25/22 22:11 [No Known Allergies*] Review of Systems Review of Systems: All other systems are reviewed and are negative Constitutional: Reports as per HPI and Reports no additional constitutional complaints Eyes: Reports as per HPI and Reports no additional eye complaints Reports system reviewed and no additional complaints, except as documented Cardiovascular: Reports as per HPI and Reports no additional cardiovascular complaints Respiratory: Reports as per HPI and Reports no additional respiratory complaints Gastrointestinal: Reports as per HPI and Reports no additional gastrointestinal complaints Genitourinary: Reports no additional female genitourinary complaints Musculoskeletal: Reports no additional musculoskeletal complaints Skin/Breast: Reports system reviewed and no additional complaints, except as docu Psychiatric: Reports no additional psychiatric complaints Endocrine: Reports no additional endocrine complaints Hematologic/Lymphatic: Reports no additional hematologic/lymphatic complaints Allergic/Immunologic: Reports no additional allergic/immunologic complaints Reports system reviewed and no additional complaints, except as documented and Reports Abnormal speech present [facility] Past Medical History Medical History No known health problems Social History Social History Alcohol intake: current Alcohol intake frequency: a few times a month Alcohol type: hard liquor Patient Tobacco Use Status: Never used Tobacco Smoked in Last 30 Days: No Use of substances other than those prescribed or required for medical reasons: No Advance Directives: No Advance Directives Information Provided: Yes Physical Exam Vital Signs: Vital Signs: Last Vital Signs Temp 98.2 F 08/25/22 22:09 Pulse 95 08/25/22 22:09 Resp 18 08/25/22 22:12 BP 104/84 08/25/22 22:09 Pulse Ox 98 08/25/22 22:09 O2 Del Method Room Air 08/25/22 22:09 BMI result Body Mass Index 19.4 Vital signs have been reviewed as appeared to be correct. Blood pressure normal. Heart rate normal. Respiration rate normal. Temperature normal. Oxygen saturation normal. Appearance: Alert. Oriented X3. No acute distress. Head: Normal external exam. Normocephalic. Atraumatic. No Harrell signs noted. No raccoon eyes noted Eyes: PERRLA. EOMI. Conjunctiva and sclera normal. Eyelids normal. ENT: TM's Normal. Pharynx normal. Uvula midline. Moist mucous membranes. No trismus noted. No drooling noted. No muffled voice noted. Neck: Normal inspection. Neck supple. FROM. No adenopathy. Thyroid Normal. No meningeal signs. No neck mass noted. CVS: Normal heart rate and rhythm. Heart sound normal. No murmurs noted. Pulses normal throughout. Respiratory: No respiratory distress. Painless inspiration. Breath sounds normal. No wheezes/rales/rhonchi noted. Left-sided chest wall tenderness, no step-off, no deformity, No accessory muscle usage noted or decreased air movement noted. Abdomen: Soft and nontender. Bowel sounds normal in all 4 quadrants. No distention noted. No organomegaly noted. No visible injury noted. Back: No CVA tenderness. Full range of motion noted. Skin: Skin warm and dry. Normal skin color. Normal skin turgor. No rashes/lesions/lacerations noted. Extremities: No lower extremity edema. Extremities exhibit normal range of motion. Extremities nontender. Neuro: Oriented X 3. Cranial nerve exam: II-XII are grossly intact No motor deficit. No sensory deficit. Reflexes normal. Course Course Course Narrative: Left chest wall pain after heavy lifting, ibuprofen for pain if needed heating pad. Medications Administered Discontinued Medications Generic Name Dose Route Start Last Admin Trade Name Freq PRN Reason Stop Dose Admin Ibuprofen 600 mg 08/25/22 22:39 08/25/22 22:42 Ibuprofen 600 Mg Tablet PO 08/25/22 22:40 600 mg ONCE ONE Administration Medical Decision Making Differential Diagnosis Differential Diagnoses: The differential diagnosis associated with the presentation includes (myofascial chest wall pain, pneumonia, pneumothorax, rib fracture) Independent Interpretation I performed an independent interpretation of an: Plain X-Ray (Left chest wall x-ray: No fracture dislocation.) Radiology Impression Discussion of test interpretation with radiology: I have reviewed the radiologist's reading. Discharge Plan Discharge Clinical Impression: Thoracic back pain Patient Disposition: Home, Self-Care Instructions: Thoracic Pain (ED) Prescriptions: New cyclobenzaprine 10 mg tablet 10 mg PO BEDTIME PRN (Reason: muscle spasm) Qty: 14 0RF ibuprofen 600 mg tablet 600 mg PO Q8H PRN (Reason: pain) Qty: 14 0RF No Action cyclobenzaprine 10 mg tablet 10 mg PO TID PRN (Reason: muscle spasm) Qty: 14 0RF ibuprofen 600 mg tablet 600 mg PO Q6H PRN (Reason: pain) Qty: 30 0RF cyclobenzaprine 10 mg tablet 10 mg PO TID PRN (Reason: muscle spasm) Qty: 10 0RF cyclobenzaprine 10 mg tablet 10 mg PO TID PRN (Reason: muscle spasm) Qty: 10 0RF ibuprofen 600 mg tablet 600 mg PO Q8H PRN (Reason: pain) Qty: 10 0RF lidocaine 5 % adhesive patch,medicated 1 patch topical DAILY Qty: 15 0RF Rx Instructions: leave on most painful area for up to 12 hrs Stand Alone Forms: Work/School Release
[2022-08-26 00:46] VITALS: BP 119/80; PULSE 68; RESP 18; O2SAT 100
== END 2022-08-26 01:03 | disposition home or self-care (01) ==
PROVIDERS: Emergency Provider Emergency Medicine
DX: M54.50 Low back pain, unspecified (principal); M54.6 Pain in thoracic spine; R07.81 Pleurodynia
CPT/HCPCS: 71101; 99283; 99284

== ENCOUNTER 2023-01-06 21:33 | Emergency (ER) | payer OTHER, SELFPAY ==
[2023-01-06 21:39] VITALS: BP 114/74; PULSE 112; RESP 18; TEMP 36.2; O2SAT 98; BMI 21.8
--- NOTE | 2023-01-06 22:29 | ED.GENADULT ---
HPI - General Adult General Chief complaint: General Medical Stated complaint: Leg pain Time Seen by Provider: 01/06/23 22:17 Source: patient, RN notes reviewed and old records reviewed Mode of arrival: ambulatory History of Present Illness HPI narrative: 22-year-old no significant past medical history presenting to the ED complaining of acute on chronic bilateral knee pain radiating down bilateral LE to bilateral heels/Achilles x months, worsening recently. Admits to trying to jog however is exacerbating pain and preventing him from jogging. Reports has seen orthopedics and physical therapy without improvement in pain. denies direct/recent injury, trauma or fall, numbness/tingling, weakness, calf pain, recent travel, SOB, fever/chills Onset (ago): month(s) Related Data Previous Rx's Medication Instructions Recorded cyclobenzaprine 10 mg tablet 10 mg PO TID PRN muscle spasm #14 08/12/20 tabs ibuprofen 600 mg tablet 600 mg PO Q6H PRN pain #30 tabs 08/12/20 cyclobenzaprine 10 mg tablet 10 mg PO TID PRN muscle spasm #10 01/17/21 tabs ibuprofen 600 mg tablet 600 mg PO Q8H PRN pain #10 tabs 01/17/21 lidocaine 5 % topical patch 1 patch topical DAILY #15 ea 01/17/21 cyclobenzaprine 10 mg tablet 10 mg PO TID PRN muscle spasm #10 03/02/21 tabs cyclobenzaprine 10 mg tablet 10 mg PO BEDTIME PRN muscle spasm 08/25/22 #14 tabs ibuprofen 600 mg tablet 600 mg PO Q8H PRN pain #14 tabs 08/25/22 acetaminophen 500 mg tablet 500 mg PO Q6H PRN fever or pain 01/06/23 (Tylenol Extra Strength) #14 tabs cyclobenzaprine 5 mg tablet 5 mg PO Q8H PRN pain (scale score 01/06/23 7-10) 5 days #14 tabs ketorolac 10 mg tablet 10 mg PO TID PRN pain 5 days #15 01/06/23 tabs Allergies Allergy/AdvReac Type Severity Reaction Status Date / Time No Known Allergies Allergy Verified 08/25/22 22:11 [No Known Allergies*] Review of Systems Review of Systems: Constitutional: No Fever, No Chills ENT/Mouth: No Ear Pain, No Nasal Congestion, No sore throat, No Rhinorrhea, No Swallowing Difficulty Cardiovascular: No Chest Pain, No SOB Respiratory: No Cough Gastrointestinal: No Nausea, No Vomiting, No Abdominal pain Genitourinary: No Dysuria, No Urinary Frequency, No Hematuria,No Flank Pain Musculoskeletal: +joint pain, + Myalgias, No Joint Swelling Skin: No Skin Lesions, No rash Neuro: No Weakness, No Numbness, No Paresthesias Yes all other systems are reviewed and are negative Constitutional: Constitutional: Reports as per [facility] Past Medical History Attestation statement: The following information was validated with the patient. Source: old records reviewed Medical History No known health problems Social History Social History Alcohol intake: current Alcohol intake frequency: a few times a month Alcohol type: hard liquor Patient Tobacco Use Status: Never used Tobacco Advance Directives: No Advance Directives Information Provided: Yes Physical Exam ED Vital Signs: Vital Signs - 24 hr 01/06/23 21:39 Temperature 97.2 F Pulse Rate 112 H Respiratory Rate 18 Blood Pressure 114/74 Pulse Oximetry 98 Oxygen Delivery Method Room Air BMI result Body Mass Index 21.8 Const General: cooperative, healthy appearing and no acute distress Orientation/consciousness: patient oriented x3 Limitations: no limitations HENMT Head: Yes normal to inspection and Yes atraumatic Ears: hearing grossly normal bilaterally General nose exam: Normal external nose present Face and sinus: Yes normal facial exam Eyes General: appearance normal, both eyes and all related structures EOM: EOMs intact bilaterally Neck Neck: Yes normal visual inspection and Yes no meningeal signs Resp Effort & Inspection: normal respiratory effort and no respiratory distress Cardio Rate: regular rate Skin Rashes: no rashes Wounds: no wounds Neuro General: patient oriented x3, tone normal and no meningeal signs Cranial nerves: Yes CN's II-XII intact bilaterally Gait exam (Neuro): Normal gait present Extrem Other: +mild bilateral Achilles tendon ttp. No erythema/warmth/fluctuance/induration. Negative Pond test. Ambulating with steady gait No pitting edema or calf tenderness. Bilateral knees are nontender without deformity. Full range of motion intact. Neurovascular intact distally General: Yes normal to inspection Medications Administered Discontinued Medications Generic Name Dose Route Start Last Admin Trade Name Freq PRN Reason Stop Dose Admin Ketorolac Tromethamine 30 mg 01/06/23 22:46 01/06/23 23:31 Ketorolac Tromethamine 30 Mg/Ml Vial IM 01/06/23 22:47 30 mg ONCE ONE Administration Medical Decision Making Medical Decision Making [facility] Narrative: 22-year-old no significant past medical history presenting to the ED complaining of acute on chronic bilateral knee pain radiating down bilateral LE to bilateral heels/Achilles x months, worsening recently. On exam tachycardic, anxious, NAD, nontoxic appearing, physical exam as above with mild bilateral Achilles tendon tenderness, no deformity/erythema. Negative constant test, ambulating with steady gait, no evidence of trauma or infection. Concern for tendinitis versus sprain. Low suspicion for DVT, PAD, Achilles tendon rupture or partial tear, gastroc tear Plan: IM Toradol, orthopedic follow-up Results discussed with patient including worrisome signs and symptoms and strict return precautions, and when to return to the emergency department. They verbalized understanding and feel safe for discharge at this time. Differential Diagnosis Differential Diagnoses: The differential diagnosis associated with the presentation includes As above External Record Review External record reviewed: Inpatient record, Office record, Outpatient record, Prior outpatient labs, Prior outpatient radiology, Primary care record and Outside ED record Tests considered The following testing was considered but not selected: As above Prescription Management I considered prescription management with: Pain Medication Discharge Plan Discharge Clinical Impression: Achilles tendinitis Patient Disposition: Home, Self-Care Instructions: Achilles Tendinitis (ED) Additional Instructions: Your pain is likely musculoskeletal Flexeril is a muscle relaxer, take at night as it makes you drowsy, do not drive, drink alcohol, or operate machinery while taking it Toradol as an anti-inflammatory / pain medication, take with food do not take both Toradol, Motrin/ibuprofen/Aleve, pick 1 medication as they are all the same class In addition take Tylenol at home You need to follow-up with orthopedics If pain persists or worsens/becomes unbearable return to the ED Prescriptions: New ketorolac 10 mg tablet 10 mg PO TID PRN (Reason: pain) 5 Days Qty: 15 0RF cyclobenzaprine 5 mg tablet 5 mg PO Q8H PRN (Reason: pain (scale score 7-10)) 5 Days Qty: 14 0RF acetaminophen [Tylenol Extra Strength] 500 mg tablet 500 mg PO Q6H PRN (Reason: fever or pain) Qty: 14 0RF No Action cyclobenzaprine 10 mg tablet 10 mg PO TID PRN (Reason: muscle spasm) Qty: 14 0RF ibuprofen 600 mg tablet 600 mg PO Q6H PRN (Reason: pain) Qty: 30 0RF cyclobenzaprine 10 mg tablet 10 mg PO TID PRN (Reason: muscle spasm) Qty: 10 0RF cyclobenzaprine 10 mg tablet 10 mg PO TID PRN (Reason: muscle spasm) Qty: 10 0RF ibuprofen 600 mg tablet 600 mg PO Q8H PRN (Reason: pain) Qty: 10 0RF lidocaine 5 % adhesive patch,medicated 1 patch topical DAILY Qty: 15 0RF Rx Instructions: leave on most painful area for up to 12 hrs cyclobenzaprine 10 mg tablet 10 mg PO BEDTIME PRN (Reason: muscle spasm) Qty: 14 0RF ibuprofen 600 mg tablet 600 mg PO Q8H PRN (Reason: pain) Qty: 14 0RF Referrals: [facility] Surgeons [Provider Group] Interventions: ED Discharge Assessment Last Done: 01/06/23 23:33 Discharge Date/Time: 01/06/23 23:34
[2023-01-06] MEDS: Ketorolac Tromethamine 30 MG/ML VIAL IM (23:31)
== END 2023-01-06 23:34 | disposition home or self-care (01) ==
PROVIDERS: Emergency Provider Emergency Medicine Emergency Medical Services
DX: M76.62 Achilles tendinitis, left leg (principal); M76.61 Achilles tendinitis, right leg; R00.0 Tachycardia, unspecified; F41.9 Anxiety disorder, unspecified
CPT/HCPCS: 96372; 99283; 99284; J1885

== ENCOUNTER 2023-02-16 23:50 | Emergency (ER) | payer OTHER, SELFPAY ==
--- NOTE | ~2023-02-16 | XR_ITS ---
EXAMINATION: XR ANKLE, RIGHT CLINICAL INFORMATION: Ankle pain COMPARISON: None available. TECHNIQUE: AP, lateral, and mortise views of the right ankle. FINDINGS: Osseous alignment is anatomic. No acute fracture is seen. No significant focal soft tissue abnormality identified. There is suggestion of a joint effusion. XR/XR ankle RT min 3V IMPRESSION: Suggestion of joint effusion without acute osseous findings.
[2023-02-17 00:10] VITALS: BP 128/78; PULSE 83; RESP 16; TEMP 36.6; O2SAT 98; BMI 20.2
--- NOTE | 2023-02-17 02:06 | ED_ITS ---
HPI - Extremity Injury (Lower) General Chief Complaint: Extremity Injury, Lower Stated Complaint: ankle pain Time Seen by Provider: 02/17/23 02:05 Source: patient Mode of arrival: ambulatory Limitations: no limitations History of Present Illness HPI Narrative: Been complaining of right heel pain after running patient has this pain for long time ,off and on pain in the right ankle , some time get better and went start running again pain comes back for last 1 month having the pain Related Data Previous Rx's Medication Instructions Recorded cyclobenzaprine 10 mg tablet 10 mg PO TID PRN muscle spasm #14 08/12/20 tabs ibuprofen 600 mg tablet 600 mg PO Q6H PRN pain #30 tabs 08/12/20 cyclobenzaprine 10 mg tablet 10 mg PO TID PRN muscle spasm #10 01/17/21 tabs ibuprofen 600 mg tablet 600 mg PO Q8H PRN pain #10 tabs 01/17/21 lidocaine 5 % topical patch 1 patch topical DAILY #15 ea 01/17/21 cyclobenzaprine 10 mg tablet 10 mg PO TID PRN muscle spasm #10 03/02/21 tabs cyclobenzaprine 10 mg tablet 10 mg PO BEDTIME PRN muscle spasm 08/25/22 #14 tabs ibuprofen 600 mg tablet 600 mg PO Q8H PRN pain #14 tabs 08/25/22 acetaminophen 500 mg tablet 500 mg PO Q6H PRN fever or pain 01/06/23 (Tylenol Extra Strength) #14 tabs cyclobenzaprine 5 mg tablet 5 mg PO Q8H PRN pain (scale score 01/06/23 7-10) 5 days #14 tabs ketorolac 10 mg tablet 10 mg PO TID PRN pain 5 days #15 01/06/23 tabs ibuprofen 600 mg tablet 600 mg PO Q6H PRN fever or pain 02/17/23 #30 tabs Allergies Allergy/AdvReac Type Severity Reaction Status Date / Time No Known Allergies Allergy Verified 08/25/22 22:11 [No Known Allergies*] Review of Systems 2 Review of Systems: Yes all other systems are reviewed and are negative [facility] Past Medical History Medical History No known health problems Social History Alcohol intake: current Alcohol intake frequency: a few times a month Alcohol type: hard liquor Patient Tobacco Use Status: Never used Tobacco Advance Directives: No Advance Directives Information Provided: No Physical Exam 2 Vital Signs: Vital Signs: Last Vital Signs Temp 98 F 02/17/23 00:10 Pulse 83 02/17/23 00:10 Resp 16 02/17/23 00:10 BP 128/78 02/17/23 00:10 Pulse Ox 98 02/17/23 00:10 O2 Del Method Room Air 02/17/23 00:10 BMI result Body Mass Index 20.2 Extrem: Ankle/foot/toe images: 1. Slight swelling and tenderness of right ankle joint good range of movement is skin normal in color Medications Administered Discontinued Medications Generic Name Dose Route Start Last Admin Trade Name Freq PRN Reason Stop Dose Admin Ibuprofen 600 mg 02/17/23 02:16 02/17/23 02:34 Ibuprofen 600 Mg Tablet PO 02/17/23 02:17 600 mg ONCE ONE Administration Medical Decision Making Independent Interpretation I performed an independent interpretation of an: Plain X-Ray Radiology Impression Discussion of test interpretation with radiology: I have reviewed the radiologist's reading. Discharge Plan Discharge Clinical Impression: Ankle sprain and strain Patient Disposition: Home, Self-Care Instructions: Ankle Strain (ED) Additional Instructions: Avoid running until you heal fully Ibuprofen for pain Prescriptions: New ibuprofen 600 mg tablet 600 mg PO Q6H PRN (Reason: fever or pain) Qty: 30 0RF No Action cyclobenzaprine 10 mg tablet 10 mg PO TID PRN (Reason: muscle spasm) Qty: 14 0RF ibuprofen 600 mg tablet 600 mg PO Q6H PRN (Reason: pain) Qty: 30 0RF cyclobenzaprine 10 mg tablet 10 mg PO TID PRN (Reason: muscle spasm) Qty: 10 0RF cyclobenzaprine 10 mg tablet 10 mg PO TID PRN (Reason: muscle spasm) Qty: 10 0RF ibuprofen 600 mg tablet 600 mg PO Q8H PRN (Reason: pain) Qty: 10 0RF lidocaine 5 % adhesive patch,medicated 1 patch topical DAILY Qty: 15 0RF Rx Instructions: leave on most painful area for up to 12 hrs cyclobenzaprine 10 mg tablet 10 mg PO BEDTIME PRN (Reason: muscle spasm) Qty: 14 0RF ibuprofen 600 mg tablet 600 mg PO Q8H PRN (Reason: pain) Qty: 14 0RF ketorolac 10 mg tablet 10 mg PO TID PRN (Reason: pain) 5 Days Qty: 15 0RF cyclobenzaprine 5 mg tablet 5 mg PO Q8H PRN (Reason: pain (scale score 7-10)) 5 Days Qty: 14 0RF acetaminophen [Tylenol Extra Strength] 500 mg tablet 500 mg PO Q6H PRN (Reason: fever or pain) Qty: 14 0RF Interventions: ED Discharge Assessment Last Done: 02/17/23 02:49 Discharge Date/Time: 02/17/23 02:51
[2023-02-17] MEDS: Ibuprofen 600 MG TABLET PO (02:34)
== END 2023-02-17 02:51 | disposition home or self-care (01) ==
PROVIDERS: Emergency Provider Internal Medicine
DX: S93.401A Sprain of unspecified ligament of right ankle, initial encounter (principal); M25.571 Pain in right ankle and joints of right foot; X58.XXXA Exposure to other specified factors, initial encounter; Y93.9 Activity, unspecified; Y92.9 Unspecified place or not applicable; Y99.9 Unspecified external cause status
CPT/HCPCS: 73610; 99283

== ENCOUNTER 2024-05-24 00:14 | Emergency (ER) | payer OTHER, SELFPAY ==
[2024-05-24 00:25] VITALS: BP 116/70; PULSE 92; RESP 16; TEMP 36.7; O2SAT 98; BMI 19.5
[2024-05-24 00:40] LABS: MANUAL DIFF FLAG NO
[2024-05-24 00:41] LABS: Basophils Absolute Auto 0.1 X10*3/uL (0.0-0.2); Basophils Percent Auto 0.7 % (0-2); Eosinophils Absolute Auto 0.1 X10*3/uL (0.0-0.4); Eosinophils Percent Auto 0.7 % (0-4); Hematocrit 39.8 % (42.0-52.0); Hemoglobin 13.7 g/dl (14.0-18.0); Imm Gran Abs Auto 0.03 X10*3/uL (0.00-0.03); Imm Gran Pct Auto 0.4 % (0.0-0.4); Lymphocytes Absolute Auto 2.1 X10*3/uL (1.2-4.9); Lymphocytes Percent Auto 27.9 % (20-40); Mean Corpuscular HGB Conc 34.4 g/dl (31.0-36.0); Mean Corpuscular Hemoglobin 31.2 pg (27.0-33.0); Mean Corpuscular Volume 90.7 fL (80.0-98.0); Mean Platelet Volume 9.7 fL (9.4-12.4); Monocytes Absolute Auto 0.6 X10*3/uL (0.1-1.2); Neutrophils Absolute Auto 4.7 x10*3/uL (2.0-8.3); Neutrophils Percent Auto 62.3 % (45-73); Platelet Count 247 X10*3/uL (160-400); Red Blood Count 4.39 X10*6/uL (4.60-5.80); Red Cell Distribution Width 12.1 % (11.0-16.0); White Blood Count 7.5 X10*3/uL (4.8-10.8)
[2024-05-24 00:53] LABS: Anion Gap 12 (12-20); Blood Urea Nitrogen 11 mg/dL (9-16); Calcium 8.8 mg/dL (8.4-10.2); Carbon Dioxide 25 mmol/L (22-29); Chloride 107 mmol/L (96-108); Creatinine Clr Calc Pharmacy 116.3; Estimated Glomerular Filt Rate > 60; Glucose Random 79 mg/dL (60-115); Lipase 29 U/L (8-78); Potassium 3.5 mmol/L (3.3-5.1); Sodium 140 mmol/L (135-145)
[2024-05-24 02:12] LABS: Influenza A PCR NEGATIVE (Negative); Influenza B PCR NEGATIVE (Negative); Resp Syncy Virus RNA Qual PCR NEGATIVE (Negative); SARS COV2 PCR INHOUSE NEGATIVE (Negative)
[2024-05-24 02:20] LABS: Appearance Urine Clear; Color Urine Yellow; Glucose Urine UA Negative (Negative); Leukocyte Esterase Urine Negative (Negative); Nitrite Urine Negative (Negative); PH 6.5 (5.0-9.0); Urine Blood Negative (Negative); Urine Ketones Negative (Negative); Urine Protein Negative (Neg-Trace)
--- NOTE | 2024-05-24 04:08 | ED.ABDPAIN ---
HPI - Abdominal Pain General Chief Complaint: Abdominal Pain Stated Complaint: abd pain Time Seen by Provider: 05/24/24 03:54 Source: patient Mode of arrival: ambulatory Limitations: no limitations History of Present Illness ED Provider: DR. Braden HPI narrative: 24-year-old male otherwise healthy came in for evaluation of 1 week epigastric abdominal pain that is worse with food, no nausea, no vomiting, no radiation of the pain, no fever, no chills. No history of intra-abdominal surgery. Last bowel movement was this morning and was normal. No dysuria, no frequency urination, no hematuria. Related Data Previous Rx's ?Medication ?Instructions ?Recorded cyclobenzaprine 10 mg tablet 10 mg PO TID PRN muscle spasm #14 08/12/20 tabs ibuprofen 600 mg tablet 600 mg PO Q6H PRN pain #30 tabs 08/12/20 cyclobenzaprine 10 mg tablet 10 mg PO TID PRN muscle spasm #10 01/17/21 tabs ibuprofen 600 mg tablet 600 mg PO Q8H PRN pain #10 tabs 01/17/21 lidocaine 5 % topical patch 1 patch topical DAILY #15 ea 01/17/21 cyclobenzaprine 10 mg tablet 10 mg PO TID PRN muscle spasm #10 03/02/21 tabs cyclobenzaprine 10 mg tablet 10 mg PO BEDTIME PRN muscle spasm 08/25/22 #14 tabs ibuprofen 600 mg tablet 600 mg PO Q8H PRN pain #14 tabs 08/25/22 acetaminophen 500 mg tablet 500 mg PO Q6H PRN fever or pain 01/06/23 (Tylenol Extra Strength) #14 tabs cyclobenzaprine 5 mg tablet 5 mg PO Q8H PRN pain (scale score 01/06/23 7-10) 5 days #14 tabs ketorolac 10 mg tablet 10 mg PO TID PRN pain 5 days #15 01/06/23 tabs ibuprofen 600 mg tablet 600 mg PO Q6H PRN fever or pain 02/17/23 #30 tabs omeprazole 40 mg capsule,delayed 40 mg PO DAILY #14 caps 05/24/24 release Allergies Allergy/AdvReac Type Severity Reaction Status Date / Time No Known Allergies Allergy Verified 05/24/24 00:27 [No Known Allergies*] Review of Systems Review of Systems All other systems are reviewed and are negative Constitutional: Reports as per HPI and Reports no additional constitutional complaints Eyes: Reports as per HPI and Reports no additional eye complaints Reports system reviewed and no additional complaints, except as documented Cardiovascular: Reports as per HPI and Reports no additional cardiovascular complaints Respiratory: Reports as per HPI and Reports no additional respiratory complaints Gastrointestinal: Reports as per HPI and Reports no additional gastrointestinal complaints Genitourinary: Reports no additional female genitourinary complaints Musculoskeletal: Reports no additional musculoskeletal complaints Skin/Breast: Reports system reviewed and no additional complaints, except as docu Psychiatric: Reports no additional psychiatric complaints Endocrine: Reports no additional endocrine complaints Hematologic/Lymphatic: Reports no additional hematologic/lymphatic complaints Allergic/Immunologic: Reports no additional allergic/immunologic complaints Reports system reviewed and no additional complaints, except as documented and Reports Abnormal speech present [facility] Past Medical History Medical History No known health problems Social History Social History Alcohol intake: current Alcohol intake frequency: a few times a month Alcohol type: hard liquor Patient Tobacco Use Status: Never used Tobacco Smoked in Last 30 Days: Yes Use of substances other than those prescribed or required for medical reasons: No Advance Directives: No Advance Directives Information Provided: Yes Do you have a plan to hurt others: No Plan Physical Exam ED Vital Signs: Vital Signs - 24 hr 05/24/24 00:25 Temperature 98.0 F Pulse Rate 92 Respiratory Rate 16 Blood Pressure 116/70 Pulse Oximetry 98 Oxygen Delivery Method Room Air BMI result Body Mass Index 19.5 Vital signs have been reviewed and appear to be correct. Blood pressure elevated. Heart rate normal. Respiratory rate normal. Temperature normal. Oxygen saturation normal. Appearance: Alert. Oriented X3. No acute distress. Head: Normal external exam. Normocephalic. Atraumatic. No Harrell signs noted. No raccoon eyes noted Eyes: PERRLA. EOMI. Conjunctiva and sclera normal. Eyelids normal. ENT: TM's Normal. Pharynx normal. Uvula midline. Moist mucous membranes. No trismus noted. No drooling noted. No muffled voice noted. Neck: Normal inspection. Neck supple. FROM. No adenopathy. Thyroid Normal. No meningeal signs. No neck mass noted. CVS: Normal heart rate and rhythm. Heart sound normal. No murmurs noted. Pulses normal throughout. Respiratory: No respiratory distress. Painless inspiration. Breath sounds normal. No wheezes/rales/rhonchi noted. Chest nontender. No accessory muscle usage noted or decreased air movement noted. Abdomen: Soft, epigastric tenderness, no rebound tenderness, no guarding. Bowel sounds normal in all 4 quadrants. No distention noted. No organomegaly noted. No visible injury noted. Back: No CVA tenderness. Full range of motion noted. Skin: Skin warm and dry. Normal skin color. Normal skin turgor. No rashes/lesions/lacerations noted. Extremities: No lower extremity edema. Extremities exhibit normal range of motion. Extremities nontender. Neuro: Oriented X 3. Cranial nerve exam: II-XII are grossly intact No motor deficit. No sensory deficit. Reflexes normal. Course Reevaluation(s) Reevaluation #1: Feels better after Prilosec/Maalox. Will start the patient on Prilosec and follow-up with GI. Time: 04:30 Medical Decision Making Differential Diagnosis Differential Diagnoses: The differential diagnosis associated with the presentation includes ( Gastritis, pancreatitis, colitis, kidney stone, appendicitis, UTI, pyelonephritis, severe anemia, gallbladder disease.) Admission/Observation Consideration of admission/observation: Escalation of care including admission/observation considered Lab Data MDM Lab Attestation statement: I reviewed the patient's lab results. 05/24/24 00:35 05/24/24 00:35 Labs: Lab Results 05/24/24 05/24/24 05/24/24 Range/Units 00:35 01:26 02:13 WBC 7.5 (4.8-10.8) X10*3/uL RBC 4.39 L (4.60-5.80) X10*6/uL Hgb 13.7 L (14.0-18.0) g/dl Hct 39.8 L (42.0-52.0) % MCV 90.7 (80.0-98.0) fL MCH 31.2 (27.0-33.0) pg MCHC 34.4 (31.0-36.0) g/dl RDW 12.1 (11.0-16.0) % Plt Count 247 (160-400) X10*3/uL MPV 9.7 (9.4-12.4) fL Immature Gran % (Auto) 0.4 (0.0-0.4) % Neut % (Auto) 62.3 (45-73) % Lymph % (Auto) 27.9 (20-40) % [place] % (Auto) 8.0 (2-11) % Eos % (Auto) 0.7 (0-4) % Baso % (Auto) 0.7 (0-2) % Lymph # (Auto) 2.1 (1.2-4.9) X10*3/uL [place] # (Auto) 0.6 (0.1-1.2) X10*3/uL Eos # (Auto) 0.1 (0.0-0.4) X10*3/uL Baso # (Auto) 0.1 (0.0-0.2) X10*3/uL Abs Immat Gran (auto) 0.03 (0.00-0.03) X10*3/uL Absolute Neuts (auto) 4.7 (2.0-8.3) x10*3/uL Absolute Nucleated RBC 0.000 (0.0-0.012) X10*3/uL Nucleated RBC % (auto) 0.0 (0.0-0.2) /100WBC Sodium 140 (135-145) mmol/L Potassium 3.5 (3.3-5.1) mmol/L Chloride 107 (96-108) mmol/L Carbon Dioxide 25 (22-29) mmol/L Anion Gap 12 (12-20) BUN 11 (9-16) mg/dL Creatinine 0.76 (0.5-1.4) mg/dL Estim Creat Clear Calc 116.3 Estimated GFR > 60 Random Glucose 79 (60-115) mg/dL Calcium 8.8 D (8.4-10.2) mg/dL Lipase 29 (8-78) U/L Urine Color Yellow Urine Appearance Clear Urine pH 6.5 (5.0-9.0) Ur Specific [place] 1.010 (1.005-1.025) Urine Protein Negative (Neg-Trace) mg/dL Urine Glucose (UA) Negative (Negative) mg/dL Urine Ketones Negative (Negative) mg/dL Urine Blood Negative (Negative) Urine Nitrite Negative (Negative) Ur Leukocyte Esterase Negative (Negative) Influenza Type A (PCR) NEGATIVE (Negative) Influenza Type B (PCR) NEGATIVE (Negative) RSV RNA Qual (PCR) NEGATIVE (Negative) SARS-CoV-2 RNA (RT-PCR) NEGATIVE (Negative) Discharge Plan Discharge Clinical Impression: Gastritis Patient Disposition: Home, Self-Care Instructions: Gastritis (ED) Prescriptions: New omeprazole 40 mg capsule,delayed release(DR/EC) 40 mg PO DAILY Qty: 14 0RF No Action cyclobenzaprine 10 mg tablet 10 mg PO TID PRN (Reason: muscle spasm) Qty: 14 0RF ibuprofen 600 mg tablet 600 mg PO Q6H PRN (Reason: pain) Qty: 30 0RF cyclobenzaprine 10 mg tablet 10 mg PO TID PRN (Reason: muscle spasm) Qty: 10 0RF cyclobenzaprine 10 mg tablet 10 mg PO TID PRN (Reason: muscle spasm) Qty: 10 0RF ibuprofen 600 mg tablet 600 mg PO Q8H PRN (Reason: pain) Qty: 10 0RF lidocaine 5 % adhesive patch,medicated 1 patch topical DAILY Qty: 15 0RF Rx Instructions: leave on most painful area for up to 12 hrs cyclobenzaprine 10 mg tablet 10 mg PO BEDTIME PRN (Reason: muscle spasm) Qty: 14 0RF ibuprofen 600 mg tablet 600 mg PO Q8H PRN (Reason: pain) Qty: 14 0RF ketorolac 10 mg tablet 10 mg PO TID PRN (Reason: pain) 5 Days Qty: 15 0RF cyclobenzaprine 5 mg tablet 5 mg PO Q8H PRN (Reason: pain (scale score 7-10)) 5 Days Qty: 14 0RF acetaminophen [Tylenol Extra Strength] 500 mg tablet 500 mg PO Q6H PRN (Reason: fever or pain) Qty: 14 0RF ibuprofen 600 mg tablet 600 mg PO Q6H PRN (Reason: fever or pain) Qty: 30 0RF Referrals: Jimena Sapp MD [Physician] - Print Language: Amharic
[2024-05-24 04:10] LABS: Alanine Aminotransferase 15 U/L (0-40); Albumin Level 4.4 g/dL (3.5-5.0); Alkaline Phosphatase 102 U/L (39-117); Aspartate Amino Transferase 22 U/L (5-37); Bilirubin Direct 0.4 mg/dL (0.0-0.5); Bilirubin Total 1.1 mg/dL (0.0-1.0); Total Protein 7.8 g/dL (6.5-8.0)
[2024-05-24] MEDS: Magnesium Hydrox/Alum Hydrox 30 ML ORAL.SUSP PO (04:19)
[2024-05-24] MEDS: Omeprazole 40 MG CAPSULE.DR PO (04:19)
[2024-05-24 04:36] VITALS: BP 133/76; PULSE 90; RESP 16; TEMP 37; O2SAT 98
== END 2024-05-24 04:37 | disposition home or self-care (01) ==
PROVIDERS: Emergency Provider Emergency Medicine
DX: K29.70 Gastritis, unspecified, without bleeding (principal); R10.13 Epigastric pain; Z03.818 Encounter for observation for suspected exposure to other biological agents ruled out; Z79.899 Other long term (current) drug therapy
CPT/HCPCS: 0241U; 36415; 80048; 80076; 81003; 83690; 85025; 99283; 99284